=== PATIENT | female | born 1935 | race Caucasian/White ===

== ENCOUNTER 2023-12-19 16:08 | Emergency (ER) | payer MEDICARE, SELFPAY ==
[2023-12-19 16:11] VITALS: BP 165/68; PULSE 80; RESP 16; TEMP 36.6; O2SAT 100
--- NOTE | 2023-12-19 16:33 | EKG12_ITS ---
Test Reason : Blood Pressure : / mmHG Vent. Rate : 080 BPM Atrial Rate : 077 BPM P-R Int : 000 ms QRS Dur : 136 ms QT Int : 428 ms P-R-T Axes : 000 -77 089 degrees QTc Int : 493 ms Ventricular-paced rhythm Abnormal ECG Confirmed by Surinder Rocha ([id number]), video tape editor CONNOR MANRIQUEZ ([id number]) on 12/21/2023 9:35:21 AM Referred By: ADDISON Confirmed By:Surinder Rocha
--- NOTE | 2023-12-19 16:34 | CT_ITS ---
EXAM: CT ANGIOGRAPHY OF THE RIGHT UPPER EXTREMITY WITH INTRAVENOUS CONTRAST CLINICAL INDICATION: RUE PAIN TECHNIQUE: Helically acquired angiography images of the right upper extremity with intravenous contrast using angiographic protocol. This CT exam was performed using one or more of the following dose reduction techniques: automated exposure control, adjustment of the mA and/or kV according to patient size, and/or use of iterative reconstruction technique. MIP reconstructed images were created and reviewed. CONTRAST: IV 100mL Isovue-370 RADIATION DOSE: CTDIvol = 18.85 mGy, DLP = 1785.77 mGy-cm COMPARISON: Chest CTA. FINDINGS: VASCULATURE: AORTA: Included on the chest CTA. RIGHT SUBCLAVIAN ARTERY: Patent. RIGHT AXILLARY ARTERY abrupt occlusion, nonopacified for a length of roughly 4 cm. Collateral vessels around the shoulder partially opacified distal right axillary artery or thrombus opacification distal to collateral vessel. RIGHT BRACHIAL ARTERY: Small and tortuous slightly enhanced vessel in the upper to mid upper arm. There appears to be additional thrombus distally near the elbow, surrounded by slight contrast coronal image #68. Slight opacification at the arterial bifurcation at the level of the proximal radius. RIGHT RADIAL ARTERY: Opacification of a branch of roughly 4.9 cm in length at the proximal forearm just distal to the elbow. Otherwise not opacified. RIGHT ULNAR ARTERY IS not opacified. UPPER EXTREMITY: BONES/JOINTS: Severe degenerative changes of the right shoulder consistent with chronic rotator cuff tear and advanced pseudoarticulation between the superior subluxed humeral head and undersurface of the acromion. Moderate degenerative change of the glenohumeral joint. SOFT TISSUES: Unremarkable. No soft tissue swelling or gas. No radiopaque foreign body. CT/CTA Upper Ext W/WO Contrast IMPRESSION: Multiple arterial occlusions. Most proximal occlusion involving long segment of axillary vein. Collateral flow to distal axillary-single brachial branch with additional thrombus. Occlusion of single visible distal brachial artery branch proximal to the elbow. Slight branching arteries in the proximal forearm appear patent for a very short segment but there are otherwise no opacified arteries in the forearm or wrist. Electronically Signed: Elisha Paris MD at 19:03 EDT ,
--- NOTE | 2023-12-19 16:34 | CT_ITS ---
We are attempting to reach an attending provider to discuss findings. An addendum with communication details will be sent when the communication is complete. EXAM: CT ANGIOGRAPHY CHEST WITHOUT AND WITH INTRAVENOUS CONTRAST CLINICAL INDICATION: RUE pain -- runoffs right arm, concerns of clinical occlusion TECHNIQUE: Helically acquired angiography images were obtained of the chest without and with intravenous contrast. This CT exam was performed using one or more of the following dose reduction techniques: automated exposure control, adjustment of the mA and/or kV according to patient size, and/or use of iterative reconstruction technique. MIP reconstructed images were created and reviewed. RADIATION DOSE: CTDIvol = 18.85 mGy, DLP = 1785.77 mGy-cmContrast: IV 100mL Isovue-370 COMPARISON: No relevant prior studies available. FINDINGS: PULMONARY ARTERIES: No evidence of PE. Well-opacified pulmonary arteries. Normal in caliber. No evidence of pulmonary embolism. AORTA: Unremarkable. Normal in caliber. No evidence of dissection. GREAT VESSELS OF AORTIC ARCH: Unremarkable. Normal in caliber. No evidence of dissection. OTHER ARTERIES: There is abrupt occlusion of right subclavian artery-axillary artery junction best seen on axial images 214-213 coronal image #112, most likely due to thrombus, the distal vessel appears mildly distended. There is some trace enhancement in the distal axillary-brachial artery but is largely unopacified. LUNGS AND PLEURAL SPACES: Clinic calcified granuloma in the left lung base. Incidentally noted azygos lobe, normal variation. HEART: There is what appears to be thrombus or ovoid hypodense filling defect with peripheral calcifications in the left atrial appendage, remainder of the appendage is only partially opacified, overall size roughly 1.7 cm x 1.5 cm x 1.8 cm. At least mild calcifications at the origins of the left coronary artery, multiple calcifications or stents left anterior descending coronary artery. Heart size is normal. No pericardial effusion. MEDIASTINUM: Unremarkable. No mediastinal or hilar adenopathy. Esophagus is unremarkable. No hiatal hernia. THYROID: Unremarkable. No thyroid lesions. BONES/JOINTS: Marked superior subluxation of the right humeral head with pseudoarticulation with the undersurface of the acromium and adjacent bone sclerosis and subchondral cysts. Presumed chronic rotator cuff tear, slight atrophic muscle is seen. Left rotator cuff interval also appears marked narrowing with superior subluxation of the left humeral head. Degenerative changes at L1-2. No suspicious lytic or blastic abnormality. LIVER: Presumed hepatic cyst of 1.5 cm. GALLBLADDER AND BILE DUCTS: Choledocholithiasis, numerous stones roughly half filling the gallbladder. PANCREAS: Proximal pancreas is not fully included. Unremarkable adrenals. KIDNEYS AND URETERS: Presumed left renal cyst of 2.5 cm, not fully included. STOMACH AND BOWEL: Mild diverticulosis of the hepatic and splenic flexures. TUBES, LINES AND DEVICES: Pacemaker lead in the right ventricle. CT/CTA Chest W/WO Contrast IMPRESSION: 1. Abrupt occlusion without narrowing at the level of the distal right subclavian-axillary artery junction. Presumably due to embolus-thrombus. 2. Hypodense peripherally calcified filling defect in the left atrial appendage, presumed organized thrombus. 3. The proximal great vessels are patent. There are at least moderate calcifications of the carotid bulbs. 4. Cholelithiasis. 5. Diverticulosis. 6. Coronary artery calcifications. 7. Presumed chronic rotator cuff tears and secondary degenerative changes, greater on the right. Electronically Signed: Elisha Paris MD at 18:29 EDT ,
[2023-12-19] MEDS: Morphine 4 MG/ML Syringe IV (16:45)
--- NOTE | 2023-12-19 16:46 | EDS_ITS ---
HPI History of Present Illness Chief Complaint: Numb/Ting Informant: patient and family Narrative Narrative: Presents with daughter private vehicle increasing right upper extremity pain from the shoulder down without any trauma. States her arm feels colder on the right compared to the left. History of A-fib with a Watchman. 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 She is not on any blood thinners. History of Parkinson's on medication and lives with a walker at home. She lives with her daughters. Remote breast cancer right side 5 years ago with surgical treatment only. Per daughter has lived in the area for the past year, prior was in [place]. Pain is worsened throughout the day therefore came for evaluation. Prior similar symptoms: No PFSH PFSH Medical History (Updated 12/20/23 @ 00:[address] Jonas Ceja DO) A-fib Pacemaker Hypotension Allergy/AdvReac Type Severity Reaction Status Date / Time No Known Allergies Allergy Verified 12/19/23 16:11 Surgical History (Updated 12/19/23 @ 16:52 by Hortensia Marinelli) H/O: hysterectomy Previous back surgery Hx of appendectomy Social History Smoking Status: Never smoker ROS ROS ED Constitutional Constitutional ED: Denies chills, fever(s) or sweats Eyes Eyes: Denies change in vision ENT ENT ED: Denies dysphagia or sore throat Cardiovascular Cardiovascular: Denies chest pain, leg edema, palpitations or racing heartbeat Respiratory/Chest Respiratory/Chest: Denies cough, dyspnea or dyspnea on exertion Gastrointestinal Gastrointestinal: Denies abdominal pain, diarrhea, nausea or vomiting Genitourinary Genitourinary ED: Denies dysuria, hematuria or urinary frequency Musculoskeletal Musculoskeletal: Reports extremity pain; Denies back pain or neck pain Integumentary Denies rash or wounds Neurologic Neurologic: Denies headache(s), paresthesias or weakness EXAM Physical Exam Const Vital Signs: 12/19/23 16:11 12/19/23 18:10 Temperature 97.8 F Temperature Source Oral Pulse Rate 80 80 Respiratory Rate 16 18 Blood Pressure 165/68 H 135/82 H Blood Pressure Mean 100 99 Pulse Ox 100 94 Oxygen Delivery Method Room Air Room Air Positive well nourished and well developed Constitutional Narrative: Nontoxic. General Appearance ED: well developed HEENT Reports moist mucous membranes normocephalic and atraumatic Eyes EOMs intact bilaterally and conjunctivae normal General Eye ED: Yes normal appearance of both eyes Neck no lymphadenopathy and supple General: Negative for tenderness Chest Wall Chest: Negative for tenderness Resp normal respiratory effort and normal air movement Effort and Inspection: symmetric chest movement; Negative for respiratory distress Cardio regular rate, regular rhythm and no murmurs Peripheral Pulses: pulses 2+ throughout GI normal to inspection, nondistended, normoactive bowel sounds and non-tender Palpation: Negative for guarding or rebound tenderness present Back/Spine no CVA tenderness and no thoracic nor lumbar tenderness Extremity Extremity Narrative: Right upper extremity, differences in temperature colder from proximal forearm down to the hand right compared to left. Could not palpate a radial pulse. Faint brachial pulse palpated. Is treating inspector the upper arm. Noted cyanosis of the fingers of all 5 digits. General Extremety ED: Yes tenderness; Negative for edema General Extremity: Negative for edema Neuro oriented x3 and no sensory deficits noted Sensorium / Orientation: awake and alert Skin Skin Narrative: See above MDM MDM MDM Narrative Medical decision making narrative: Interventions / MDM: Differential diagnosis: Right upper extremity arterial thrombus, left atrial thrombus, paroxysmal A-fib Diagnosis considered but do not suspect: N/A My EKG interpretation: Paced rhythm rate of 80, T wave inversion in aVL nonspecific. Imaging independently reviewed and interpreted by myself: CT angiogram chest: No chest mass noted. Concerns for axillary thrombus. CT angiogram right upper extremity: Axillary thrombus concerns with mild distal flow which at the antecubital. External documents reviewed: N/A Test considered but not ordered:N/A ED course: Patient exam concerns for right upper extremity arterial thrombus. She is a paced rhythm on EKG. She is not any anticoagulants. Discussed with radiology department for stat CT angiogram chest with runoff to the right upper extremity. Labs are drawn. Keep NPO. IV morphine. We have no capabilities with vascular medical/surgery registered nurse currently. Will discuss with transfer facilit y. 1655: I spoke with [facility] transfer line, spoke with vascular surgeon Dr. Ferrara, discussed clinical concerns with imaging pending. Will start heparin bolus with drip. Will push imaging to their facility. Will transfer to the ED at [facility] For evaluation and planned surgical intervention. I spoke with the ED department who took down information will expect the arrival. Family updated. 1814: CT angiograms had been performed. Heparin is up. Clinically having improvement of pain symptoms however still has a cold forearm. On my evaluation there is concerns for an axillary thrombus and there is some distal flow without smiled, however from forearm down I could not see any flow. I am awaiting for final read at this time. Awaiting transport. Received call from radiology she has left atrial thrombus formation with the axillary subclavian thrombus. She was started on heparin. This was relayed to the ED doctor Dr. Barbara Moreno at [facility]. Multiple artery occlusions in the right upper arm. Re-evaluation: stable Disposition discussed with patient/family/significant other: Patient and family Case discussed with consulting clinician: Vascular surgery, emergency department This note was generated with [employer] dictation software. It may contain incorrect words, spelling, and punctuation that were not noted in checking the note before signing. Lab Data Attestation: I reviewed the patient's lab results. Labs: Laboratory Results - last 24 hr 12/19/23 16:42 WBC 6.5 RBC 4.25 Hgb 14.1 Hct 43.8 MCV 103.1 H MCH 33.2 H MCHC 32.2 RDW Std Deviation 49.2 H RDW Coeff of Tj 12.9 Plt Count 220 MPV 9.3 Immature Gran % (Auto) 0.300 Neut % (Auto) 67.2 Lymph % (Auto) 21.8 Cotton % (Auto) 9.3 Eos % (Auto) 0.9 Baso % (Auto) 0.5 Absolute Neuts (auto) 4.4 Absolute Lymphs (auto) 1.41 Nucleated RBC % 0 PT 13.5 INR 1.0 APTT 23.4 L Sodium 135 L Potassium 4.2 Chloride 104 Carbon Dioxide 26.0 Anion Gap 5 BUN 17 Creatinine 1.20 H Estim Creat Clear Calc 31.36 Est GFR (MDRD) Af Amer 54 L Est GFR (MDRD) Non-Af 45 L BUN/Creatinine Ratio 14.2 Glucose 124 H Calcium 9.7 Radiography Diagnostic Testing: Clinical Impression(s) from Imaging Studies Chest CTA 12/19/23 16:34 IMPRESSION: 1. Abrupt occlusion without narrowing at the level of the distal right subclavian-axillary artery junction. Presumably due to embolus-thrombus. 2. Hypodense peripherally calcified filling defect in the left atrial appendage, presumed organized thrombus. 3. The proximal great vessels are patent. There are at least moderate calcifications of the carotid bulbs. 4. Cholelithiasis. 5. Diverticulosis. 6. Coronary artery calcifications. 7. Presumed chronic rotator cuff tears and secondary degenerative changes, greater on the right. Electronically Signed: Elisha Paris MD at 18:29 EDT , ADDENDUM: 12/19/23 1849 IMPRESSION: 1. Abrupt occlusion without narrowing at the level of the distal right subclavian-axillary artery junction. Presumably due to embolus-thrombus. 2. Hypodense peripherally calcified filling defect in the left atrial appendage, presumed organized thrombus. 3. The proximal great vessels are patent. There are at least moderate calcifications of the carotid bulbs. 4. Cholelithiasis. 5. Diverticulosis. 6. Coronary artery calcifications. 7. Presumed chronic rotator cuff tears and secondary degenerative changes, greater on the right. N.B. : The above Results were Read Back by Elisha Paris MD to Jonas Ceja DO, and understanding confirmed on 12/19/2023 18:42:24 (ET). Electronically Signed: Elisha Paris MD at 18:29 EDT Reading Location ID and State: [facility] / [place] Tel , Service support , Upper Extremity CTA 12/19/23 16:34 IMPRESSION: Multiple arterial occlusions. Most proximal occlusion involving long segment of axillary vein. Collateral flow to distal axillary-single brachial branch with additional thrombus. Occlusion of single visible distal brachial artery branch proximal to the elbow. Slight branching arteries in the proximal forearm appear patent for a very short segment but there are otherwise no opacified arteries in the forearm or wrist. 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
[2023-12-19 16:49] LABS: Absolute Lymphocyte Count 1.41 X10^3/uL (0.83-4.51); Absolute Neutrophil Count 4.4 X10^3/uL (2.0-7.7); Basophil# 0.03 X10^3/uL; Basophil% 0.5 % (0-1); Eosinophil# 0.06 X10^3/uL; Eosinophils% 0.9 % (0-5); Hematocrit 43.8 % (37-47); Hemoglobin 14.1 g/dL (12.0-15.0); Lymphocyte # 1.41 X10^3/ul (0.83-4.51); Lymphocyte % 21.8 % (19-41); Mean Corp Hgb Conc 32.2 g/dL (32-36); Mean Corpuscular Hgb 33.2 pg (27.0-32.0); Mean Corpuscular Volume 103.1 fL (81-99); Mean Platelet Vol. 9.3 fl (6.2-12.0); Monocyte% 9.3 % (0-10); NRBC Flagged by Analyzer 0 % (0-5); Neutrophil # 4.36 X10^3/uL (2.7-7.7); Neutrophil % 67.2 % (47-70); Platelet Count 220 K/mm3 (150-450); RBC Distribution Width CV 12.9 % (11.6-14.6); RBC Distribution Width SD 49.2 fl (35.1-43.9); Red Blood Count 4.25 M/mm3 (4.2-5.4); White Blood Count 6.5 K/mm3 (4.4-11.0)
[2023-12-19 16:53] VITALS: BMI 26.9
[2023-12-19 16:58] LABS: Prothrombin Time (Protime)PT. 13.5 SECONDS (11.7-14.9)
[2023-12-19 16:59] LABS: Partial Thromboplast Time 23.4 Seconds (24.1-36.2)
[2023-12-19 17:02] LABS: Anion Gap 5 (5-15); BUN 17 mg/dL (7-18); BUN/Creat Ratio 14.2 RATIO (10-20); Calcium,Total 9.7 mg/dL (8.5-10.1); Chloride 104 mmol/L (98-107); EST Glomerular Filtration Rate 45 mL/min (>60); Est Glom Filt Rate - Afr Amer 54 mL/min (>60); Estimated Creatinine Clearance 31.36 ml/min; Glucose 124 mg/dL (74-106); Potassium 4.2 mmol/L (3.5-5.1); Sodium Level 135 mmol/L (136-145)
[2023-12-19] MEDS: HEPARIN/D5w 25,000 UNITS 25,000 UNITS/250 ML IV.SOLN. 9 UNITS CONT INF (17:20)
[2023-12-19] MEDS: Heparin Injection (Vial) 5,000 UNIT/ML VIAL 4000 UNIT IV (17:20)
--- NOTE | 2023-12-19 17:34 | NURSING ---
1830 ETA FOR PHYSICIANS
[2023-12-19 18:10] VITALS: BP 135/82; PULSE 80; RESP 18; O2SAT 94
== END 2023-12-19 18:58 | disposition short-term general hospital (02) ==
PROVIDERS: Emergency Provider Emergency Medicine; Visit Provider Emergency Medicine
DX: I51.3 Intracardiac thrombosis, not elsewhere classified (principal); G20.A1 Parkinson's disease without dyskinesia, without mention of fluctuations; I74.2 Embolism and thrombosis of arteries of the upper extremities; I48.0 Paroxysmal atrial fibrillation; Z95.0 Presence of cardiac pacemaker; Z85.3 Personal history of malignant neoplasm of breast
CPT/HCPCS: 71275; 73206; 80048; 85025; 85610; 85730; 93005; 96374; 96375; 99284; Q9967; A4216